=== PATIENT | male | born 1980 | race Caucasian/White ===

== ENCOUNTER 2017-04-24 11:48 | Emergency (ER) | payer MEDICARE, MEDICAID ==
[2017-04-24 12:51] VITALS: BP 147/76
--- NOTE | 2017-04-24 13:09 | ED ---
Throat Pain/Nasal Congestion - HPI Summary HPI Summary: 37 yr old male with the complaint of cough, runny nose, ear pain, sinus pressure and now he has lost his voice. he states he has been ill for one week. He denies chest pain, drooling, shortness of breath. He states he has had post nasal drip and a lot of sinus pressure. He has allergies to pencicillins. he is a non smoker. - History of Current Complaint Chief Complaint: UCGeneralIllness Time Seen by Provider: 04/24/17 12:53 - Allergies/Home Medications Allergies/Adverse Reactions: Allergies Allergy/AdvReac Type Severity Reaction Status Date / Time Penicillins Allergy Unknown Verified 04/24/17 12:51 Reaction Details PMH/Surg Hx/FS Hx/Imm Hx Endocrine/Hematology History: Reports: Hx Diabetes - IDDM Denies: Hx Thyroid Disease Cardiovascular History: Reports: Hx Hypertension Denies: Hx Pacemaker/ICD Respiratory History: Denies: Hx Asthma History: Denies: Hx Renal Disease Sensory History: Denies: Hx Hearing Aid Psychiatric History: Reports: Hx Panic Disorder - SEVERE ANXIETY - Surgical History Surgery Procedure, Year, and Place: gastric bypass surgery 2013. AMPUTATION RIGHT TOES Infectious Disease History: No Infectious Disease History: Denies: Traveled Outside the [place] in Last 30 Days - Family History Known Family History: Positive: Hypertension Negative: Respiratory Disease - Social History Alcohol Use: None Substance Use Type: Reports: None Smoking Status (MU): Never Smoked Tobacco Review of Systems Constitutional: Negative Positive: Sore Throat, Ear Ache, Nasal Discharge Positive: Cough. Negative: Shortness Of Breath All Other Systems Reviewed And Are Negative: Yes Physical Exam Triage Information Reviewed: Yes Vital Signs On Initial Exam: Initial Vitals Temp Pulse Resp BP Pulse Ox 98.3 F 83 18 147/76 100 04/24/17 12:47 04/24/17 12:47 04/24/17 12:47 04/24/17 12:47 04/24/17 12:47 Vital Signs Reviewed: Yes Appearance: Positive: Well-Appearing, No Pain Distress Skin: Positive: Warm, Skin Color Reflects Adequate Perfusion Head/Face: Positive: Normal Head/Face Inspection Eyes: Positive: EOMI ENT: Positive: Normal ENT inspection, Pharynx normal, Hoarse voice, Uvula midline. Negative: TMs normal - left TM with effusion, Tonsillar swelling, Tonsillar exudate, Muffled voice Neck: Positive: Nontender Respiratory/Lung Sounds: Positive: Clear to Auscultation, Breath Sounds Present Cardiovascular: Positive: RRR. Negative: Murmur Abdomen Description: Positive: Nontender, Other: - obese Neurological: Positive: Alert, Oriented to Person Place, Time, CN Intact II-III Psychiatric: Positive: Normal - Terry Coma Scale Best Eye Response: 4 - Spontaneous Best Motor Response: 6 - Obeys Commands Best Verbal Response: 5 - Oriented Diagnostics - Vital Signs Vital Signs Temp Pulse Resp BP Pulse Ox 04/24/17 12:47 98.3 F 83 18 147/76 100 - Laboratory Lab Statement: Any lab studies that have been ordered have been reviewed, and results considered in the medical decision making process. EENT Course/Dx - Course Course Of Treatment: 37 yr old male with sinusitis, and left OM. Rx with doxy and put on pred low dose for two days for the laryngitis. - Diagnoses Provider Diagnoses: Laryngitis, Sinusitis, Otitis media, Hypertension Discharge - Discharge Plan Condition: Good Disposition: HOME Prescriptions: Doxycycline (Monohydrate) [Doxycycline Monohydrate] 100 mg PO BID #20 cap predniSONE TAB* [Deltasone TAB*] 20 mg PO DAILY #2 tab Patient Education Materials: Sinusitis (ED), Otitis Media (ED), Laryngitis (ED) , Hypertension (ED) Referrals: NEERAJ Napoles [Primary Care Provider] -
== END 2017-04-24 13:10 | disposition home or self-care (01) ==
LOC: UCCORT 11:48
DX: J04.0 Acute laryngitis (principal); J32.9 Chronic sinusitis, unspecified; I10 Essential (primary) hypertension; H66.92 Otitis media, unspecified, left ear; Z88.0 Allergy status to penicillin; E11.9 Type 2 diabetes mellitus without complications; Z79.4 Long term (current) use of insulin
CPT/HCPCS: 99212; G0463

== ENCOUNTER 2018-07-05 11:22 | Emergency (ER) | payer MEDICARE, MEDICAID ==
[2018-07-05 13:29] VITALS: BP 110/66
[2018-07-05 13:57] LABS: Influenza A Molecular NEGATIVE (Negative); Influenza B Molecular NEGATIVE (Negative)
--- NOTE | 2018-07-05 14:03 | UC ---
FLU HPI - HPI Summary HPI Summary: 38-year-old male presents with onset of chills, general malaise, nasal congestion, sore throat, and a nonproductive cough yesterday. Denies fever, ear pain, dysphagia, chest pain, shortness of breath, wheezing, abdominal pain, nausea, vomiting, or diarrhea. - History of Current Complaint Chief Complaint: UCGeneralIllness Stated Complaint: COUGH,THROAT,SIMS Time Seen by Provider: 07/05/18 13:39 Hx Obtained From: Patient Pain Intensity: 5 - Allergy/Home Medications Allergies/Adverse Reactions: Allergies Allergy/AdvReac Type Severity Reaction Status Date / Time Penicillins Allergy Unknown Verified 07/05/18 13:26 Reaction Details Home Medications: Home Medications Acetaminophen [Mapap] 500 mg PO ONCE 07/05/18 [History Confirmed 07/05/18] Aspirin EC TAB* [Ecotrin EC Low Dose 81 MG*] 81 mg PO DAILY 07/05/18 [History Confirmed 07/05/18] Atorvastatin* [Lipitor*] 20 mg PO DAILY 07/05/18 [History Confirmed 07/05/18] Dapagliflozin Propanediol [Farxiga] 5 mg PO DAILY 07/05/18 [History Confirmed ] Nortriptyline CAP* [Pamelor CAP*] 75 mg PO BEDTIME 07/05/18 [History Confirmed 07/05/18] Paliperidone Palmitate [Invega Trinza] 273 mg IM SEE INSTRUCTIONS 07/05/18 [ History Confirmed 07/05/18] Prazosin CAP* [Minipress CAP*] 5 mg PO DAILY 07/05/18 [History Confirmed ] metFORMIN* [Glucophage 1000 MG TAB *] 1,000 mg PO BID 07/05/18 [History Confirmed 07/05/18] PMH/Surg Hx/FS Hx/Imm Hx - Additional Past Medical History Additional PMH: Morbid obesity, peripheral neuropathy Endocrine History: Diabetes, Dyslipidemia Cardiovascular History: Hypertension - Surgical History Surgical History: Yes Surgery Procedure, Year, and Place: gastric bypass surgery 2013. AMPUTATION RIGHT TOES - Family History Known Family History: Positive: Hypertension - Social History Occupation: Disabled Lives: With Family Alcohol Use: None Substance Use Type: None Smoking Status (MU): Never Smoked Tobacco - Immunization History Most Recent Influenza Vaccination: not current Review of Systems All Other Systems Reviewed And Are Negative: Yes Constitutional: Negative: Fever, Chills Skin: Negative: Rash Eyes: Negative: Drainage, Eye Redness ENT: Positive: Sore Throat, Nasal Discharge, Sinus Congestion. Negative: Ear Ache, Sinus Pain/Tenderness Respiratory: Positive: Cough. Negative: Shortness Of Breath Cardiovascular: Negative: Palpitations, Chest Pain Gastrointestinal: Negative: Abdominal Pain, Vomiting, Diarrhea, Nausea Genitourinary: Positive: Negative Musculoskeletal: Positive: Negative Neurological: Positive: Negative Is Patient Immunocompromised?: No Physical Exam - Summary Physical Exam Summary: GENERAL APPEARANCE: Alert and cooperative, morbidly obese male who appears to be in no acute distress. EYES: Conjunctiva clear. No drainage. Vision is grossly intact. EARS: External auditory canals and tympanic membranes clear, hearing grossly intact. NOSE: Mild nasal congestion. Clear drainage. THROAT: Pharyngeal erythema. No tonsilar inflammation, swelling, exudate, or lesions. NECK: Neck supple, non-tender without lymphadenopathy. CARDIAC: Normal S1 and S2. No S3, S4 or murmurs. Rhythm is regular. There is no peripheral edema, cyanosis or pallor. Extremities are warm and well perfused. Capillary refill is less than 2 seconds. LUNGS: Clear to auscultation without rales, rhonchi, wheezing or diminished breath sounds. Dry, non-productive cough. ABDOMEN: Positive bowel sounds. Soft, nondistended, nontender. No guarding or rebound. No masses or hepatosplenomegally. SKIN: Skin normal color, texture and turgor with no lesions or eruptions. Triage Information Reviewed: Yes Vital Signs: Initial Vital Signs Temp 97.8 F 07/05/18 13:24 Pulse 108 07/05/18 13:24 Resp 19 07/05/18 13:24 BP 110/66 07/05/18 13:24 Pulse Ox 99 07/05/18 13:24 Vital Signs Reviewed: Yes Diagnostics - Laboratory Diagnostic Studies Completed/Ordered: Rapid flu negative. Flu Course/Dx - Course Course Of Treatment: 38-year-old male presents with onset of chills, general malaise, nasal congestion, sore throat, and a nonproductive cough yesterday. Denies fever, ear pain, dysphagia, chest pain, shortness of breath, wheezing, abdominal pain, nausea, vomiting, or diarrhea. Afebrile. Vital signs stable. Exam reveals a morbidly obese male in no acute distress with mild nasal congestion, clear drainage, mild pharyngeal erythema without tonsillar swelling or exudate, no cervical lymphadenopathy, clear bilateral breath sounds, dry nonproductive cough, otherwise unremarkable exam. Rapid flu negative. Recommending symptomatic treatment for viral upper respiratory infection. He is to follow-up with his primary care provider in 7 days if symptoms do not improve. Anticipatory guidance and warning symptoms were reviewed with the patient. Verbalizes understanding and agrees with plan of care. - Differential Dx/Diagnosis Differential Diagnosis/HQI/PQRI: Bronchitis, Influenza, Pneumonia, Upper Respiratory Infection Provider Diagnosis: Viral URI with cough Discharge - Sign-Out/Discharge Documenting (check all that apply): Patient Departure All imaging exams completed and their final reports reviewed: No Studies - Discharge Plan Condition: Stable Disposition: HOME Prescriptions: Benzonatate CAP* [Tessalon 100 MG CAP*] 100 mg PO TID PRN #30 cap PRN Reason: Cough Patient Education Materials: Upper Respiratory Infection (ED) Referrals: Pretty Cardenas MD [Primary Care Provider] - Additional Instructions: The rapid flu test performed in the clinic today was negative. Your history and exam are consistent with a viral upper respiratory infection. Viral infections do not respond to antibiotics and are limited to the treatment of symptoms. Viral infections typically run their course in 7-10 days. Drink plenty of fluids to avoid dehydration especially if you are running any fever. Take Tessalon Perles 1 cap every 8 hours as need for cough. Take over the counter acetaminophen (Tylenol) or ibuprofen (Advil, Motrin) according to directions as needed for pain or fever. Use salt water gargles several times a day if you have a sore throat. You may also use Chloraseptic spray or Cepacol lonzenges according to directions which contain a numbing medication and can provide some temporary relief from your sore throat. Follow up with your primary care provider in 7 days if symptoms persist. Seek immediate medical attention in the emergency room if you have fever greater than 100.5 F despite taking acetaminophen or ibuprofen, have chest pain , difficulty breathing, are unable to swallow, or have any worsening of symptoms. - Billing Disposition and Condition Condition: STABLE Disposition: Home
== END 2018-07-05 14:20 | disposition home or self-care (01) ==
LOC: UCCORT 11:22
DX: J06.9 Acute upper respiratory infection, unspecified (principal); R05 Cough; E11.9 Type 2 diabetes mellitus without complications; E11.42 Type 2 diabetes mellitus with diabetic polyneuropathy; I10 Essential (primary) hypertension; E78.5 Hyperlipidemia, unspecified; E66.01 Morbid (severe) obesity due to excess calories; Z79.899 Other long term (current) drug therapy; Z79.82 Long term (current) use of aspirin; Z79.84 Long term (current) use of oral hypoglycemic drugs; Z88.0 Allergy status to penicillin
CPT/HCPCS: 99212; G0463

== ENCOUNTER 2018-08-06 16:23 | Emergency (ER) | payer MEDICARE, MEDICAID ==
[2018-08-06 17:44] VITALS: BP 124/89
--- NOTE | 2018-08-06 17:51 | UC ---
Shoulder Pain HPI - HPI Summary HPI Summary: Patient complains of right shoulder pain worsening over the past 2 weeks. He denies any specific injury to the area. He is unable to take Motrin because of gastric bypass surgery which has enabled him to lose approximately 150 pounds. He has an appointment with an orthopedist on August 16 however he states the pain was getting worse. He denies any radiation of the pain to his chest or cardiac symptoms. - History of Current Complaint Chief Complaint: UCUpperExtremity Stated Complaint: RT SHOULDER COMPLAINT Time Seen by Provider: 08/06/18 17:51 Hx Obtained From: Patient Onset/Duration: Gradual Onset Timing: Constant Severity Initially: Mild Severity Currently: Mild Pain Intensity: 7 Character: Aching Aggravating Factor(s): Movement, Lifting - Allergies/Home Medications Allergies/Adverse Reactions: Allergies Allergy/AdvReac Type Severity Reaction Status Date / Time Penicillins Allergy Unknown Verified 08/06/18 17:44 Reaction Details PMH/Surg Hx/FS Hx/Imm Hx Previously Healthy: No - morbid obesity GI/ History: Other - Gastric bypass surgery which has enabled him to lose 150 pounds. - Surgical History Surgical History: Yes Surgery Procedure, Year, and Place: gastric bypass surgery 2013. AMPUTATION RIGHT TOES - Family History Known Family History: Positive: Hypertension Negative: Respiratory Disease - Social History Alcohol Use: None Substance Use Type: None Smoking Status (MU): Never Smoked Tobacco - Immunization History Most Recent Influenza Vaccination: not current Review of Systems All Other Systems Reviewed And Are Negative: Yes Constitutional: Positive: Negative Skin: Positive: Negative Eyes: Positive: Negative ENT: Positive: Negative Respiratory: Positive: Negative Cardiovascular: Positive: Negative Gastrointestinal: Positive: Negative Genitourinary: Positive: Negative Motor: Positive: Negative Neurovascular: Positive: Negative Musculoskeletal: Positive: Other: - Pain with range of motion of right arm and shoulder Neurological: Positive: Negative Psychological: Positive: Negative Is Patient Immunocompromised?: No Physical Exam Triage Information Reviewed: Yes Appearance: Obese Vital Signs: Initial Vital Signs Temp 96.7 F 08/06/18 17:40 Pulse 71 08/06/18 17:40 Resp 16 08/06/18 17:40 BP 124/89 08/06/18 17:40 Pulse Ox 100 08/06/18 17:40 Vital Signs Reviewed: Yes Respiratory: Positive: Lungs clear, Normal breath sounds, No respiratory distress Cardiovascular Exam: Normal Musculoskeletal: Positive: Strength Intact, ROM Intact, Other: - Peripheral pulses, neurosensation and capillary refill. Normal muscle contour, no erythema , bruising, swelling or deformity noted. Good range of motion, but with mild pain anterior right shoulder. Neurological Exam: Normal Psychological Exam: Normal Skin Exam: Normal Shoulder Course/Dx - Course Course Of Treatment: Patient has been comfortable here and refuses pain medication. X-ray shows possible calcific tendinitis. - Differential Dx/Diagnosis Differential Diagnosis/HQI/PQRI: Tendonitis Provider Diagnosis: Calcific tendinitis of right shoulder Discharge - Sign-Out/Discharge Documenting (check all that apply): Patient Departure All imaging exams completed and their final reports reviewed: No - Discharge Plan Condition: Fair Disposition: HOME Patient Education Materials: Calcific Tendinitis (ED) Referrals: Pretty Cardenas MD [Primary Care Provider] - Additional Instructions: Apply heat to the sore area, limit range of motion causes pain. He may take Tylenol for pain. Definite follow-up with your orthopedist on August 16 as scheduled. Avoid heavy lifting. - Billing Disposition and Condition Condition: FAIR Disposition: Home - Attestation Statements Provider Attestation: Per institutional requirements, I have reviewed the chart, however, I was not consulted specifically or made aware of this patient by the midlevel provider. I did not personally evaluate, interact with , or disposition this patient.
--- NOTE | 2018-08-07 08:04 | UC ---
- EKG/XRAY/CT XRAY: right shoulder - Calcific tendinopathy Course/Dx - Course Course Of Treatment: Patient has apt to follow up with Ortho - Diagnoses Provider Diagnoses: Calcific tendinitis of right shoulder Discharge - Sign-Out/Discharge Documenting (check all that apply): Post-Discharge Follow Up All imaging exams completed and their final reports reviewed: Yes - Discharge Plan Condition: Fair Disposition: HOME Patient Education Materials: Calcific Tendinitis (ED) Referrals: Pretty Cardenas MD [Primary Care Provider] - Additional Instructions: Apply heat to the sore area, limit range of motion causes pain. He may take Tylenol for pain. Definite follow-up with your orthopedist on August 16 as scheduled. Avoid heavy lifting. - Billing Disposition and Condition Condition: FAIR Disposition: Home
== END 2018-08-06 19:14 | disposition home or self-care (01) ==
LOC: UCCORT 16:23
DX: M75.32 Calcific tendinitis of left shoulder (principal); E66.01 Morbid (severe) obesity due to excess calories; Z88.0 Allergy status to penicillin
CPT/HCPCS: 99211; G0463